=== PATIENT | male | born 1975 | race Caucasian/White ===

== ENCOUNTER 2018-09-21 08:00 | Inpatient (IN) | payer OTHER ==
[2018-09-21] MEDS ORDERED: SODIUM CHLORIDE 0.9% 500 ML INFUS.BAG IV ONE (08:26)
--- NOTE | 2018-09-21 08:27 | PDOC ---
Attending Attestation - Resident Resident Name: Rah Edwards - ED Attending Attestation I have performed the following: I have examined & evaluated the patient, The case was reviewed & discussed with the resident, I agree w/resident's findings & plan, Exceptions are as noted - HPI HPI: 09/21/18 08:26 42yo M no PMH presents with sudden onset L flank pain since yesterday Sharp in nature, radiates around the flank a/w nausea, multiple epiosdes of NBNB emesis No f/c, sob, cp, diarrhea/constipation No hx flank pain No prev abd surgeries Denies dysuria, frequency, urgency, hematuria Denies CP, SOB, weakness/numbness, dizziness - Physicial Exam PE: 09/21/18 13:43 agree with resident exam - Medical Decision Making 09/21/18 13:44 42yo presents to the ED with 1 day of sharp left flank pain, found to have 5x4 mm L prox ureter stone, obstructing with perinephric stranding and fluid 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 Carr in the ED, recommends admission Case disucussed with Dr. Sawyer, pt admitted to Dr. Tomas's service Case discussed in detail with admitting physician including history, physical exam and ancillary studies. Admitting physician has assumed care for the patient, will follow all pending diagnostics and will complete the evaluation and treatment.
[2018-09-21] MEDS ORDERED: morphine CARPU-JECT 4 MG/1 ML DISP.SYRIN IVPUSH ONE (08:28)
[2018-09-21] MEDS ORDERED: ONDANSETRON 4 MG/2 ML VIAL IVPUSH ONE (08:29)
--- NOTE | 2018-09-21 08:30 | PDOC ---
History of Present Illness - General Chief Complaint: Pain, Acute Stated Complaint: PAIN Time Seen by Provider: 09/21/18 08:09 History Source: Patient Exam Limitations: No Limitations - History of Present Illness Initial Comments: 09/21/18 08:35 Mr. De La Cruz is a 42 y/o man with no PMH presenting with one day of 10/10 sharp L sided flank pain and nausea/vomiting. He reports that the pain began all at once yesterday, and reports that it spreads slightly towards his belly while being localized mostly to the L flank. He reports vomiting repeatedly yesterday and is unsure of how many times, but reports that he "doesn't think [he] has anything left to throw up". He denies any blood or bile in the vomit, any urinary pain or discomfort, any chest pain, shortness of breath, dizziness, confusion. He reports difficulty finding a position of comfort. He denies any history of kidney stone, or similar episodes of pain in the past. Past History - Past Medical History Allergies/Adverse Reactions: Allergies Allergy/AdvReac Type Severity Reaction Status Date / Time No Known Allergies Allergy Verified 09/21/18 08:05 COPD: No - Surgical History Appendectomy: Yes - Immunization History Immunization Up to Date: Yes - Suicide/Smoking/Psychosocial Hx Smoking Status: Yes Smoking History: Never smoked Have you smoked in the past 12 months: No Number of Cigarettes Smoked Daily: 5 Information on smoking cessation initiated: No 'Breaking Loose' booklet given: 06/30/11 Hx Alcohol Use: No Drug/Substance Use Hx: No Substance Use Type: Marijuana Review of Systems - Review of Systems Comments:: 09/21/18 08:42 ROS: GENERAL/CONSTITUTIONAL: No fever or chills. No weakness. HEAD, EYES, EARS, NOSE AND THROAT: No change in vision. No ear pain or discharge. No sore throat. CARDIOVASCULAR: No chest pain or shortness of breath RESPIRATORY: No cough, wheezing, or hemoptysis. GASTROINTESTINAL: Nausea, vomiting. No diarrhea or constipation. GENITOURINARY: No dysuria, frequency, or change in urination. MUSCULOSKELETAL: L sided back pain. No joint or muscle swelling or pain. No neck pain. SKIN: No rash NEUROLOGIC: No headache, vertigo, loss of consciousness, or change in strength/ sensation. ENDOCRINE: No increased thirst. No abnormal weight change HEMATOLOGIC/LYMPHATIC: No anemia, easy bleeding, or history of blood clots. ALLERGIC/IMMUNOLOGIC: No hives or skin allergy. *Physical Exam - Vital Signs Last Vital Signs Temp Pulse Resp BP Pulse Ox 97.5 F L 73 20 139/94 100 09/21/18 08:01 09/21/18 08:01 09/21/18 08:01 09/21/18 08:01 09/21/18 08:01 - Physical Exam Comments: 09/21/18 08:43 PE: GENERAL: Awake, alert, and fully oriented. Writhing on hospital bed. HEAD: No signs of trauma, normocephalic, atraumatic EYES: PERRLA, EOMI, sclera anicteric, conjunctiva clear ENT: Auricles normal inspection, hearing grossly normal, nares patent, oropharynx clear without exudates. Moist mucosa NECK: Normal ROM, supple, no lymphadenopathy, JVD, or masses LUNGS: No distress, speaks full sentences, clear to auscultation bilaterally HEART: Regular rate and rhythm, normal S1 and S2, no murmurs, rubs or gallops, peripheral pulses normal and equal bilaterally. ABDOMEN: L CVA tenderness. Soft, diffuse mild tenderness, normoactive bowel sounds. No guarding, no rebound. No masses EXTREMITIES : Normal inspection, Normal range of motion, no edema. No clubbing or cyanosis. NEUROLOGICAL: Cranial nerves II through XII grossly intact. Normal speech, no focal sensorimotor deficits SKIN: Warm, Dry, normal turgor, no rashes or lesions noted ED Treatment Course - LABORATORY CBC & Chemistry Diagram: 09/21/18 08:30 09/21/18 08:30 Medical Decision Making - Medical Decision Making 09/21/18 08:44 42 y/o man with one day of sudden onset severe L flank pain with N/V, consistent with nephrolithiasis. Other possibilities include infection secondary to stone, less likely given lack of fever or chills. SBO possible given sudden onset, pain, N/V but less likely given lack of risk factors. Plan: CBC CMP UA Urine culture Lipase 4mg Morphine for pain 1L NS bolus Bedside ultrasound CT abdomen pelvis pending labs --- CT notable for 5x4.5 stone in proximal L ureter, L hydronephrosis, L perinephric stranding concerning for calyx rupture. Cr - 1.5 (prior 0.8 in 2011) 30 toradol IV ordered --- On reevaluation, patient reports lessened pain, sitting in bed more comfortably. 09/21/18 10:[address] Heath (urology). Plan for urology evaluation in ED ( ETA approx 1 hr). If unable to control pain in ED, patient may be admitted for pain control/fluids. Urology to evaluate. 10: 09/21/18 12:[address] Heath re: follow-up on patient evaluation in ED. *DC/Admit/Observation/Transfer Diagnosis at time of Disposition: Left nephrolithiasis - Discharge Dispostion Condition at time of disposition: Stable Decision to Admit order: Yes - Referrals Referrals: Tay Cooper MD [Primary Care Provider] - - Patient Instructions - Post Discharge Activity
[2018-09-21] MEDS ORDERED: morphine SULFATE 4 MG/ML VIAL ONE (08:32)
[2018-09-21] MEDS ORDERED: ONDANSETRON 4 MG/2 ML VIAL ONE (08:32)
[2018-09-21 08:52] LABS: BASO % 0.5 % (0-2.0); EOS % 0.1 % (0-4.5); HEMATOCRIT 41.7 % (35.4-49); HEMOGLOBIN 14.8 GM/dL (11.7-16.9); LYMPH % 12.8 % (8-40); MCH 31.9 pg (25.7-33.7); MCHC 35.4 g/dl (32.0-35.9); MEAN PLT VOLUME 7.8 fl (7.5-11.1); MONO % 7.7 % (3.8-10.2); NEUT % 78.9 % (42.8-82.8); PLATELET COUNT 306 K/MM3 (134-434); RBC 4.63 M/mm3 (4.00-5.60); RDW 13.1 % (11.9-15.9); WHITE BLOOD COUNT 8.9 K/mm3 (4.0-10.0)
[2018-09-21 09:25] LABS: ALBUMIN 4.3 g/dl (3.4-5.0); BILIRUBIN,TOTAL 0.7 mg/dL (0.2-1); BLOOD UREA NITROGEN 20.8 mg/dL (7-18); CALCIUM 9.2 mg/dL (8.5-10.1); CREATININE 1.5 mg/dL (0.55-1.3); POTASSIUM 4.1 mmol/L (3.5-5.1)
[2018-09-21] MEDS ORDERED: KETOROLAC TROMETHAMINE 30 MG/1 ML VIAL ONE (10:23)
[2018-09-21] MEDS ORDERED: KETOROLAC TROMETHAMINE 30 MG/1 ML VIAL IVPUSH ONE (10:23)
[2018-09-21 12:04] LABS: URINE APPEARANCE CLEAR; URINE BILIRUBIN NEGATIVE (NEGATIVE); URINE COLOR YELLOW; URINE GLUCOSE (UA) NEGATIVE (NEGATIVE); URINE KETONE TRACE (NEGATIVE); URINE LEUK ESTERASE NEGATIVE (NEGATIVE); URINE NITRITE NEGATIVE (NEGATIVE); URINE PROTEIN NEGATIVE (NEGATIVE); URINE UROBILINOGEN 0.2 mg/dL (0.2-1.0)
--- NOTE | 2018-09-21 13:01 | CON.GU ---
Consult Consult Specialty:: Urology Referred by:: Dr Edwards Reason for Consultation:: Left renal colic - History of Present Illness Chief Complaint: Left flank pain History of Present Illness: 42 yo male otherwise healthy w no prior hx now w 2 days nausea vomiting severe left flank pain - Alcohol/Substance Use Hx Alcohol Use: No - Smoking History Smoking history: Never smoked Have you smoked in the past 12 months: No Aproximately how many cigarettes per day: 5 Home Medications - Allergies Allergies/Adverse Reactions: Allergies Allergy/AdvReac Type Severity Reaction Status Date / Time No Known Allergies Allergy Verified 09/21/18 08:05 Physical Exam- Vital Signs: Vital Signs Temperature 97.5 F L 09/21/18 08:01 Pulse Rate 73 09/21/18 08:01 Respiratory Rate 20 09/21/18 08:01 Blood Pressure 139/94 09/21/18 08:01 O2 Sat by Pulse Oximetry (%) 100 09/21/18 08:01 Labs: CBC, BMP 09/21/18 08:30 09/21/18 08:30 Imaging - Results Cat Scan: Image Reviewed Problem List - Problems (1) Renal colic on left side Assessment/Plan: 42 yo malle w left renal colic from 5 mm prox ureteral stone N/V no SIRS signs IVF strain urine analgesics prn Discussed lithotripsy if stone does not pass Code(s): N23 - UNSPECIFIED RENAL COLIC
[2018-09-21 15:04] VITALS: BMI 30.7
[2018-09-21] MEDS ORDERED: SODIUM CHLORIDE 1,000 ML IV SCH (15:30)
[2018-09-21] MEDS: MORPHINE SULFATE 2 MG/ML VIAL IVPUSH PRN ×2 (16:07→20:08)
--- NOTE | 2018-09-21 16:35 | PN ---
Teaching Attending Note Name of Resident: Robyn Lewis ATTENDING PHYSICIAN STATEMENT I saw and evaluated the patient. I reviewed the resident's note and discussed the case with the resident. I agree with the resident's findings and plan as documented. SUBJECTIVE: Left flank pain/tenderness with associated nausea/vomiting. No fever /chills. No dysuria. OBJECTIVE: Afebrile, Hemodynamically Stable Last Vital Signs Temp Pulse Resp BP Pulse Ox 97.5 F L 73 20 139/94 100 09/21/18 08:01 09/21/18 08:01 09/21/18 08:01 09/21/18 08:01 09/21/18 13:44 HEENT - Atraumatic, Normocephalic. Heart - S1, S2, RRR Lung - clear to auscultation Abdomen - Soft, L flank/CVA tender. Bowel Sounds normal. Extremities - No edema, no calf tenderness Neuro - AAO x 3. Tone/Power normal all 4 extremities. Laboratory Results - last 24 hr 09/21/18 09/21/18 09/21/18 08:30 08:30 11:40 WBC 8.9 RBC 4.63 Hgb 14.8 Hct 41.7 MCV 90.0 MCH 31.9 MCHC 35.4 RDW 13.1 Plt Count 306 MPV 7.8 D Absolute Neuts (auto) 7.0 Neutrophils % 78.9 D Lymphocytes % 12.8 D Monocytes % 7.7 Eosinophils % 0.1 D Basophils % 0.5 Nucleated RBC % 0 Sodium 139 Potassium 4.1 Chloride 104 Carbon Dioxide 25 Anion Gap 10 BUN 20.8 H Creatinine 1.5 H Est GFR (CKD-EPI)AfAm 65.61 Est GFR (CKD-EPI)NonAf 56.61 Random Glucose 132 H Calcium 9.2 Total Bilirubin 0.7 AST 22 ALT 35 Alkaline Phosphatase 88 Total Protein 8.0 Albumin 4.3 Lipase 471 H Urine Color Yellow Urine Appearance Clear Urine pH 6.0 Ur Specific [place] 1.019 Urine Protein Negative Urine Glucose (UA) Negative Urine Ketones Trace H Urine Blood Negative Urine Nitrite Negative Urine Bilirubin Negative Urine Urobilinogen 0.2 Ur Leukocyte Esterase Negative Current Medications Generic Name Dose Route Start Last Admin Trade Name Freq PRN Reason Stop Dose Admin Acetaminophen 650 mg 09/21/18 15:18 Tylenol - PO Q6H PRN PAIN OR FEVER Heparin Sodium (Porcine) 5,000 unit 09/21/18 18:00 Heparin - SQ Q8H-IV GARRY Sodium Chloride 1,000 mls @ 150 mls/hr 09/21/18 15:59 Normal Saline - IV ASDIR GARRY Morphine Sulfate 2 mg 09/21/18 15:18 09/21/18 16:07 Morphine Sulfate IVPUSH 2 mg Q4H PRN Administration PAIN LEVEL 6-10 Ondansetron HCl 4 mg 09/21/18 15:18 Zofran Injection IVPUSH Q6H PRN NAUSEA ASSESSMENT AND PLAN: 42 year old male with no significant PMH presents with 2 day history of severe L flank pain with associated nausea/vomiting. 1. Urinary Obstruction with Uropathy secondary to Nephrolithiasis CT A/P 5 x 4.5mm obstructing stone L ureter with L hydronephrosis with perinephric stranding. Afebrile, no leukocytosis. No signs of infection. Seen by Urology - for trial of conservative management with IV hydration and Flomax. Morphine analgesia/anti-emetic. Urine Cx pending. Holding off Abx therapy for now. 2. GUNNER sec to obstructive uropathy - Creat 1.5 - will monitor in response to IV hydration. 3. R Lung Nodule 6mm - needs CT chest as out-patient with Pulmonary referral for follow up. DVT Px- Heparin SQ
[2018-09-21] MEDS ORDERED: TAMSULOSIN HCL 0.4 MG CAP PO ONE (16:57)
--- NOTE | 2018-09-21 17:01 | HP ---
CHIEF COMPLAINT:Left flank pain PCP:Dr. Cooper HISTORY OF PRESENT ILLNESS: Patient is a 42 year old male with no significant past medical history, presented to the ED due to persistent left flank pain that started 2 days ago. Patient reported pain occurred suddenly 2 days ago, at the left flank area, 10/ 10, sharp, nonradiating. Today patient had episodes of nausea and NBNB vomiting , and due to persistent pain came to the ED. Patient denies any fever, chills, headache, dizziness, chest pain, shortness of breath, abdominal pain, diarrhea, dysuria, hematuria. Patient had no previous history of stones, nor family history. ER course was notable for: (1)CTAP: 5x4.5mm obstructing stone in the proximal left ureter with mild left renal hydronephrosis, significant perinephric stranding and a small amount of left perinephric fluid extending to the left paracolic gutter and anterior to the left psoas muscle. Punctate nonobstructing right renal lower pole stone. (2) (3) Recent Travel:denies PAST MEDICAL HISTORY: none PAST SURGICAL HISTORY: none Social History: Smoking:denies Alcohol:denies Drugs: denies Family History:none Allergies No Known Allergies Allergy (Verified 09/21/18 08:05) HOME MEDICATIONS: REVIEW OF SYSTEMS CONSTITUTIONAL: Absent: fever, chills, diaphoresis, generalized weakness, malaise, loss of appetite, weight change HEENT: Absent: rhinorrhea, nasal congestion, throat pain, throat swelling, difficulty swallowing, mouth swelling, ear pain, eye pain, visual changes CARDIOVASCULAR: Absent: chest pain, syncope, palpitations, irregular heart rate, lightheadedness , peripheral edema RESPIRATORY: Absent: cough, shortness of breath, dyspnea with exertion, orthopnea, wheezing, stridor, hemoptysis GASTROINTESTINAL: Absent: abdominal pain, abdominal distension, nausea, vomiting, diarrhea, constipation, melena, hematochezia GENITOURINARY: Left flank pain Absent: dysuria, frequency, urgency, hesitancy, hematuria, genital pain MUSCULOSKELETAL: Absent: myalgia, arthralgia, joint swelling, back pain, neck pain SKIN: Absent: rash, itching, pallor HEMATOLOGIC/IMMUNOLOGIC: Absent: easy bleeding, easy bruising, lymphadenopathy, frequent infections ENDOCRINE: Absent: unexplained weight gain, unexplained weight loss, heat intolerance, cold intolerance NEUROLOGIC: Absent: headache, focal weakness or paresthesias, dizziness, unsteady gait, seizure, mental status changes, bladder or bowel incontinence PSYCHIATRIC: Absent: anxiety, depression, suicidal or homicidal ideation, hallucinations. PHYSICAL EXAMINATION Vital Signs - 24 hr 09/21/18 09/21/18 08:01 13:44 Temperature 97.5 F L Pulse Rate 73 Respiratory 20 Rate Blood Pressure 139/94 O2 Sat by Pulse 100 100 Oximetry (%) GENERAL: Awake, alert, and fully oriented, in no acute distress. HEAD: Normal with no signs of trauma. EYES:PERRLA, EOMI, sclera anicteric, conjunctiva clear. EARS, NOSE, THROAT: Moist mucous membranes. NECK: Normal range of motion, supple. LUNGS: Breath sounds equal, clear to auscultation bilaterally. HEART: Regular rate and rhythm, normal S1 and S2 without murmur, rub or gallop. ABDOMEN: Soft, nontender, not distended, normoactive bowel sounds. MUSCULOSKELETAL: Normal range of motion at all joints. +Left CVA tenderness. UPPER EXTREMITIES: 2+ pulses, warm, well-perfused. LOWER EXTREMITIES: 2+ pulses, warm, well-perfused. No peripheral edema. NEUROLOGICAL: Cranial nerves II-XII intact. Normal speech. Normal gait. PSYCHIATRIC: Cooperative. Good eye contact. Appropriate mood and affect. SKIN: Warm, dry, normal turgor, no rashes or lesions. Laboratory Results - last 24 hr 09/21/18 09/21/18 09/21/18 08:30 08:30 11:40 WBC 8.9 RBC 4.63 Hgb 14.8 Hct 41.7 MCV 90.0 MCH 31.9 MCHC 35.4 RDW 13.1 Plt Count 306 MPV 7.8 D Absolute Neuts (auto) 7.0 Neutrophils % 78.9 D Lymphocytes % 12.8 D Monocytes % 7.7 Eosinophils % 0.1 D Basophils % 0.5 Nucleated RBC % 0 Sodium 139 Potassium 4.1 Chloride 104 Carbon Dioxide 25 Anion Gap 10 BUN 20.8 H Creatinine 1.5 H Est GFR (CKD-EPI)AfAm 65.61 Est GFR (CKD-EPI)NonAf 56.61 Random Glucose 132 H Calcium 9.2 Total Bilirubin 0.7 AST 22 ALT 35 Alkaline Phosphatase 88 Total Protein 8.0 Albumin 4.3 Lipase 471 H Urine Color Yellow Urine Appearance Clear Urine pH 6.0 Ur Specific [place] 1.019 Urine Protein Negative Urine Glucose (UA) Negative Urine Ketones Trace H Urine Blood Negative Urine Nitrite Negative Urine Bilirubin Negative Urine Urobilinogen 0.2 Ur Leukocyte Esterase Negative ASSESSMENT/PLAN: Patient is a 42 year old male with no significant past medical history, presented to the ED due to persistent left flank pain that started 2 days ago. #Left flank pain 2/2 L ureteral stone -CTAP: 5x4.5mm obstructing stone in the proximal left ureter with mild left renal hydronephrosis, significant perinephric stranding and a small amount of left perinephric fluid extending to the left paracolic gutter and anterior to the left psoas muscle. -Urology (Dr. Carr) consulted. Recommendations appreciated. -IV fluids -pain control with Tylenol and Morphine -To consider lithotripsy if stone does not pass -will keep NPO after midnight. #GUNNER -likely post renal 2/2 ureterolithiasis -Cr 1.5 -IV hydration -Avoid NSAIDs -Will continue to monitor renal function #FEN -IV NS @ 150cc/hr -Electrolytes wnl, routine bmp monitoring -Sodium restricted diet, NPO after midnight #Prophylaxis -Heparin 5000unit sq tid #Disposition -full code -admit to med surg Visit type - Emergency Visit Emergency Visit: Yes ED Registration Date: 09/21/18 Care time: The patient presented to the Emergency Department on the above date and was hospitalized for further evaluation of their emergent condition. - New Patient This patient is new to me today: Yes Date on this admission: 09/22/18 - Critical Care Critical Care patient: No ATTENDING PHYSICIAN STATEMENT I saw and evaluated the patient. I reviewed the resident's note and discussed the case with the resident. I agree with the resident's findings and plan as documented. SUBJECTIVE: OBJECTIVE: ASSESSMENT AND PLAN:
[2018-09-21] MEDS: SODIUM CHLORIDE 1,000 ML IV SCH ×2 (17:22→17:37)
[2018-09-21] MEDS: ACETAMINOPHEN 325 MG TABLET (FP) PO PRN (17:35)
[2018-09-21] MEDS: HEPARIN NA (PORCINE) 5,000 UNITS/ML 1ML VIAL SQ SCH (17:37)
[2018-09-21] MEDS: ONDANSETRON 4 MG/2 ML VIAL IVPUSH PRN (20:10)
[2018-09-21] MEDS ORDERED: MORPHINE SULFATE 2 MG/ML VIAL IVPUSH ONE (22:45)
[2018-09-21] MEDS ORDERED: ACETAMINOPHEN 1000 MG/100 ML VIAL (NON FORMULARY) IVPB ONE (23:51)
[2018-09-22] MEDS: MORPHINE SULFATE 2 MG/ML VIAL IVPUSH PRN ×4 (02:27→19:09)
[2018-09-22] MEDS: HEPARIN NA (PORCINE) 5,000 UNITS/ML 1ML VIAL SQ SCH ×3 (02:27→17:43)
[2018-09-22] MEDS: ONDANSETRON 4 MG/2 ML VIAL IVPUSH PRN ×3 (02:28→11:33)
[2018-09-22] MEDS ORDERED: ACETAMINOPHEN 1000 MG/100 ML VIAL (NON FORMULARY) IVPB ONE ×2 (04:17→20:41)
[2018-09-22] MEDS: SODIUM CHLORIDE 1,000 ML IV SCH ×4 (04:32→21:40)
[2018-09-22] MEDS ORDERED: HYDROmorphone HCl 2 MG/ML VIAL IVPUSH ONE (05:01)
[2018-09-22] MEDS ORDERED: HYDROmorphone HCl 2 MG/ML VIAL IVPB ONE (06:42)
[2018-09-22 07:59] LABS: BASO % 0.5 % (0-2.0); HEMATOCRIT 37.8 % (35.4-49); HEMOGLOBIN 13.2 GM/dL (11.7-16.9); MCH 31.5 pg (25.7-33.7); MCHC 34.9 g/dl (32.0-35.9); MEAN CELL VOLUME 90.5 fl (80-96); MEAN PLT VOLUME 7.8 fl (7.5-11.1); NEUT % 81.5 % (42.8-82.8); PLATELET COUNT 270 K/MM3 (134-434); RBC 4.18 M/mm3 (4.00-5.60); RDW 12.8 % (11.9-15.9); WHITE BLOOD COUNT 9.7 K/mm3 (4.0-10.0)
[2018-09-22 08:39] LABS: BLOOD UREA NITROGEN 17.7 mg/dL (7-18); CALCIUM 8.5 mg/dL (8.5-10.1); CREATININE 1.5 mg/dL (0.55-1.3); MAGNESIUM 2.1 mg/dL (1.8-2.4); PHOSPHOROUS 3.2 mg/dL (2.5-4.9); POTASSIUM 4.5 mmol/L (3.5-5.1); TOT PROT 7.6 g/dl (6.4-8.2)
[2018-09-22] MEDS: TAMSULOSIN HCL 0.4 MG CAP PO SCH (09:43)
[2018-09-22] MEDS ORDERED: HYDROmorphone HCl 2 MG/ML VIAL IVPUSH STA (11:12)
[2018-09-22] MEDS ORDERED: diphenhydrAMINE HCL 25 MG CAPSULE (FP) PO ONE (13:30)
--- NOTE | 2018-09-22 15:27 | PN ---
Progress Note (short form) - Note Progress Note: SUBJECTIVE: Complains of excruciating left flank pain radiating to groin/L testicle. no fever/chills. Nausea ++. No vomiting. OBJECTIVE: Afebrile, Hemodynamically Stable. Writhing in pain/discomfort. Last Vital Signs Temp Pulse Resp BP Pulse Ox 98.4 F 74 74 H 155/99 99 09/22/18 09:56 09/22/18 09:56 09/22/18 09:56 09/22/18 09:56 09/21/18 21:00 HEENT - Atraumatic, Normocephalic. Heart - S1, S2, RRR Lung - clear to auscultation Abdomen - Soft, L flank/CVA tender. Bowel Sounds normal. - No testicular/scrotal erythema/swelling/tenderness. Extremities - No edema, no calf tenderness Neuro - AAO x 3. Tone/Power normal all 4 extremities. Laboratory Results - last 24 hr 09/21/18 09/21/18 09/22/18 18:00 18:00 07:24 WBC 9.7 RBC 4.18 Hgb 13.2 Hct 37.8 MCV 90.5 MCH 31.5 MCHC 34.9 RDW 12.8 Plt Count 270 MPV 7.8 Absolute Neuts (auto) 7.9 Neutrophils % 81.5 Lymphocytes % 10.0 D Monocytes % 8.0 Eosinophils % 0.0 D Basophils % 0.5 Nucleated RBC % 0 Sodium Potassium Chloride Carbon Dioxide Anion Gap BUN Creatinine Est GFR (CKD-EPI)AfAm Est GFR (CKD-EPI)NonAf Random Glucose Serum Osmolality Calcium Phosphorus Magnesium Total Bilirubin AST ALT Alkaline Phosphatase Total Protein Albumin Urine Osmolality 983 H Ur Random Creatinine 237.0 H Ur Random Sodium 114 Ur Random Urea Nitrogn 1364 H 09/22/18 07:24 WBC RBC Hgb Hct MCV MCH MCHC RDW Plt Count MPV Absolute Neuts (auto) Neutrophils % Lymphocytes % Monocytes % Eosinophils % Basophils % Nucleated RBC % Sodium 138 Potassium 4.5 Chloride 104 Carbon Dioxide 28 Anion Gap 7 L BUN 17.7 Creatinine 1.5 H Est GFR (CKD-EPI)AfAm 65.61 Est GFR (CKD-EPI)NonAf 56.61 Random Glucose 117 H Serum Osmolality 291 Calcium 8.5 Phosphorus 3.2 Magnesium 2.1 Total Bilirubin 1.0 AST 17 ALT 27 Alkaline Phosphatase 84 Total Protein 7.6 Albumin 4.0 Urine Osmolality Ur Random Creatinine Ur Random Sodium Ur Random Urea Nitrogn Current Medications Generic Name Dose Route Start Last Admin Trade Name Freq PRN Reason Stop Dose Admin Acetaminophen 650 mg 09/21/18 15:18 09/21/18 17:35 Tylenol - PO 650 mg Q6H PRN Administration PAIN OR FEVER Heparin Sodium (Porcine) 5,000 unit 09/21/18 18:00 09/22/18 10:00 Heparin - SQ Not Given Q8H-IV GARRY Sodium Chloride 1,000 mls @ 150 mls/hr 09/21/18 15:59 09/22/18 15:10 Normal Saline - IV 150 mls/hr ASDIR GARRY Administration Morphine Sulfate 2 mg 09/21/18 15:18 09/22/18 15:06 Morphine Sulfate IVPUSH 2 mg Q4H PRN Administration PAIN LEVEL 6-10 Ondansetron HCl 4 mg 09/22/18 11:05 09/22/18 11:33 Zofran Injection IVPUSH 4 mg Q4H PRN Administration NAUSEA Tamsulosin HCl 0.4 mg 09/22/18 08:30 09/22/18 09:43 Flomax - PO Not Given DAILY@0830 CRITICAL ACCESS HOSPITAL ASSESSMENT AND PLAN: 42 year old male with no significant PMH presents with 2 day history of severe L flank pain with associated nausea/vomiting. 1. Urinary Obstruction with Uropathy secondary to Nephrolithiasis CT A/P 5 x 4.5mm obstructing stone L ureter with L hydronephrosis with perinephric stranding. Afebrile, no leukocytosis. No signs of infection. Pain appears to be worsening with associated nausea/restlessness. Seen by Urology - for trial of conservative management with IV hydration and Flomax. Morphine analgesia/anti-emetic ongoing. Requiring 2 additional doses of doses of Dilaudid today. Discussed with Dr. Carr, who agrees to re-evaluate Urine Cx negative. no signs of sepsis. Holding off Abx therapy for now. 2. GUNNER sec to obstructive uropathy - Creat 1.5 - steady despite overnight hydration. Will monitor. 3. R Lung Nodule 6mm - needs CT chest as out-patient with Pulmonary referral for follow up. DVT Px- Heparin SQ Visit type - Emergency Visit Emergency Visit: Yes ED Registration Date: 09/21/18 Care time: The patient presented to the Emergency Department on the above date and was hospitalized for further evaluation of their emergent condition. - New Patient This patient is new to me today: No - Critical Care Critical Care patient: No - Discharge Referral Referred to [facility] No
[2018-09-22] MEDS: ACETAMINOPHEN 325 MG TABLET (FP) PO PRN (17:42)
[2018-09-22] MEDS ORDERED: MORPHINE SULFATE 2 MG/ML VIAL IVPUSH ONE (20:34)
[2018-09-23] MEDS: ONDANSETRON 4 MG/2 ML VIAL IVPUSH PRN (02:19)
[2018-09-23] MEDS: MORPHINE SULFATE 2 MG/ML VIAL IVPUSH PRN ×3 (02:20→16:15)
[2018-09-23] MEDS: HEPARIN NA (PORCINE) 5,000 UNITS/ML 1ML VIAL SQ SCH ×2 (02:25→09:33)
[2018-09-23] MEDS: ACETAMINOPHEN 325 MG TABLET (FP) PO PRN ×3 (05:33→22:34)
[2018-09-23] MEDS: SODIUM CHLORIDE 1,000 ML IV SCH ×3 (05:34→19:09)
[2018-09-23 08:05] LABS: BASO % 0.3 % (0-2.0); HEMATOCRIT 32.4 % (35.4-49); HEMOGLOBIN 11.4 GM/dL (11.7-16.9); LYMPH % 11.7 % (8-40); MCH 31.7 pg (25.7-33.7); MCHC 35.1 g/dl (32.0-35.9); MEAN CELL VOLUME 90.1 fl (80-96); MEAN PLT VOLUME 8.1 fl (7.5-11.1); MONO % 10.4 % (3.8-10.2); NEUT % 77.6 % (42.8-82.8); PLATELET COUNT 239 K/MM3 (134-434); RDW 12.9 % (11.9-15.9); WHITE BLOOD COUNT 7.9 K/mm3 (4.0-10.0)
[2018-09-23 08:27] LABS: BLOOD UREA NITROGEN 13.3 mg/dL (7-18); CALCIUM 7.9 mg/dL (8.5-10.1); CREATININE 1.2 mg/dL (0.55-1.3); POTASSIUM 3.9 mmol/L (3.5-5.1)
[2018-09-23] MEDS: TAMSULOSIN HCL 0.4 MG CAP PO SCH (09:33)
[2018-09-23] MEDS ORDERED: DOCUSATE SODIUM 100 MG CAPSULE (FP) PO PRN (09:48)
[2018-09-23] MEDS ORDERED: SIMETHICONE 80 MG TAB.CHEW (FP) PO PRN (11:13)
[2018-09-23] MEDS: SENNOSIDES 8.6MG TABLET (FP) PO SCH ×2 (11:42→22:35)
--- NOTE | 2018-09-23 14:25 | PN ---
Teaching Attending Note Name of Resident: Timoteo Acevedo ATTENDING PHYSICIAN STATEMENT I saw and evaluated the patient. I reviewed the resident's note and discussed the case with the resident. I agree with the resident's findings and plan as documented. SUBJECTIVE: ongoing left flank pain radiating to groin/L testicle, some improvement since yesterday. No fever/chills. Nausea resolved. No vomiting.No dysuria/hematuria. No stone/fragments passed yet. OBJECTIVE: Afebrile, Hemodynamically Stable. Last Vital Signs Temp Pulse Resp BP Pulse Ox 99.4 F 76 18 154/99 99 09/23/18 05:47 09/23/18 10:00 09/23/18 10:00 09/23/18 10:00 09/22/18 21:00 Heart - S1, S2, RRR Lung - clear to auscultation Abdomen - Soft, L flank/CVA tender. Bowel Sounds normal. - No testicular/scrotal erythema/swelling/tenderness. Extremities - No edema, no calf tenderness Neuro - AAO x 3. Tone/Power normal all 4 extremities. Laboratory Results - last 24 hr 09/23/18 09/23/18 07:10 07:10 WBC 7.9 RBC 3.60 L Hgb 11.4 L Hct 32.4 L MCV 90.1 MCH 31.7 MCHC 35.1 RDW 12.9 Plt Count 239 MPV 8.1 Absolute Neuts (auto) 6.1 Neutrophils % 77.6 Lymphocytes % 11.7 Monocytes % 10.4 H Eosinophils % 0.0 Basophils % 0.3 Nucleated RBC % 0 Sodium 138 Potassium 3.9 Chloride 104 Carbon Dioxide 27 Anion Gap 7 L BUN 13.3 Creatinine 1.2 Est GFR (CKD-EPI)AfAm 85.92 Est GFR (CKD-EPI)NonAf 74.14 Random Glucose 101 Calcium 7.9 L Current Medications Generic Name Dose Route Start Last Admin Trade Name Freq PRN Reason Stop Dose Admin Acetaminophen 650 mg 09/21/18 15:18 09/23/18 05:33 Tylenol - PO 650 mg Q6H PRN Administration PAIN OR FEVER Docusate Sodium 100 mg 09/23/18 09:48 Colace - PO BID PRN CONSTIPATION Heparin Sodium (Porcine) 5,000 unit 09/21/18 18:00 09/23/18 09:33 Heparin - SQ 5,000 unit Q8H-IV GARRY Administration Sodium Chloride 1,000 mls @ 150 mls/hr 09/21/18 15:59 09/23/18 12:28 Normal Saline - IV 150 mls/hr ASDIR GARRY Administration Morphine Sulfate 2 mg 09/21/18 15:18 09/23/18 09:41 Morphine Sulfate IVPUSH 2 mg Q4H PRN Administration PAIN LEVEL 6-10 Ondansetron HCl 4 mg 09/22/18 11:05 09/23/18 02:19 Zofran Injection IVPUSH 4 mg Q4H PRN Administration NAUSEA Senna 1 tab 09/23/18 10:00 09/23/18 11:42 Senna - PO 1 tab BID GARRY Administration Simethicone 80 mg 09/23/18 11:13 09/23/18 11:43 Mylicon - PO 80 mg Q4H PRN Administration GAS Tamsulosin HCl 0.4 mg 09/22/18 08:30 09/23/18 09:33 Flomax - PO 0.4 mg DAILY@0830 GARRY Administration ASSESSMENT AND PLAN: 42 year old male with no significant PMH presents with 2 day history of severe L flank pain with associated nausea/vomiting. 1. Urinary Obstruction with Uropathy secondary to Nephrolithiasis CT A/P 5 x 4.5mm obstructing stone L ureter with L hydronephrosis with perinephric stranding. Afebrile, no leukocytosis. No signs of infection. Pain persistent - nausea/restlessness resolved. Seen by Urology - for ongoing trial of conservative management with IV hydration and Flomax. If he has not passed stone by 09/24, the lithotripsy planned by Urology. Morphine analgesia/anti-emetic ongoing. Urine Cx negative. no signs of sepsis. T 99.4. Holding off Abx therapy for now. 2. GUNNER sec to obstructive uropathy - improving. Continue hydration. Will monitor. 3. R Lung Nodule 6mm - needs CT Chest as out-patient with Pulmonary referral for out-patient follow up. DVT Px- Heparin SQ
--- NOTE | 2018-09-23 14:32 | PN ---
Physical Exam: SUBJECTIVE: 42 y/o M whom reported no PMH and presented w c/o LEFT flank pain and admitted for nephrolithiasis, seen at bedside today. Imaging demonstrates 5 x 4.5mm obstructing stone in LEFT ureter. Pt reports on-going flank pain and c/ o constipation. He says he is monitoring his urine w strainer and has NOT passed stone or fragments. He denies dysuria and hematuria. Pt has not passed stool in 4 days and feels very gassy. He endorses nausea but no vomiting. Denies fever and chills. OBJECTIVE: Vital Signs Temp Pulse Resp BP Pulse Ox 99.4 F 76 18 154/99 99 09/23/18 05:47 09/23/18 10:00 09/23/18 10:00 09/23/18 10:00 09/22/18 21:00 GENERAL: The patient is awake, alert, and fully oriented, in no moderate distress/in pain. HEAD: Normal with no signs of trauma. EYES: ROQUE, EOMI, sclera anicteric, conjunctiva clear. No ptosis. ENT: Ears normal, nares patent, oropharynx clear without exudates, moist mucous membranes. NECK: Trachea midline, full range of motion, supple. LUNGS: Breath sounds equal, clear to auscultation bilaterally, no wheezes, no crackles, no accessory muscle use. HEART: Regular rate and rhythm, S1, S2 without murmur, rub or gallop. ABDOMEN: Soft, tender on LEFT uppler+lower quadrant, nondistended, normoactive bowel sounds, guarding, no rebound, no hepatosplenomegaly, no masses. EXTREMITIES: 2+ pulses, warm, well-perfused, no edema. NEUROLOGICAL: Cranial nerves III through XII grossly intact. Normal speech, gait not observed. PSYCH: Normal mood, normal affect. SKIN: Warm, dry, normal turgor, no rashes or lesions noted Laboratory Results - last 24 hr 09/23/18 09/23/18 07:10 07:10 WBC 7.9 RBC 3.60 L Hgb 11.4 L Hct 32.4 L MCV 90.1 MCH 31.7 MCHC 35.1 RDW 12.9 Plt Count 239 MPV 8.1 Absolute Neuts (auto) 6.1 Neutrophils % 77.6 Lymphocytes % 11.7 Monocytes % 10.4 H Eosinophils % 0.0 Basophils % 0.3 Nucleated RBC % 0 Sodium 138 Potassium 3.9 Chloride 104 Carbon Dioxide 27 Anion Gap 7 L BUN 13.3 Creatinine 1.2 Est GFR (CKD-EPI)AfAm 85.92 Est GFR (CKD-EPI)NonAf 74.14 Random Glucose 101 Calcium 7.9 L Active Medications Acetaminophen (Tylenol -) 650 mg PO Q6H PRN PRN Reason: PAIN OR FEVER Last Admin: 09/23/18 05:33 Dose: 650 mg Docusate Sodium (Colace -) 100 mg PO BID PRN PRN Reason: CONSTIPATION Heparin Sodium (Porcine) (Heparin -) 5,000 unit SQ Q8H-IV [facility] Last Admin: 09/23/18 09:33 Dose: 5,000 unit Sodium Chloride (Normal Saline -) 1,000 mls @ 150 mls/hr IV ASDIR [facility] Last Admin: 09/23/18 12:28 Dose: 150 mls/hr Morphine Sulfate (Morphine Sulfate) 2 mg IVPUSH Q4H PRN PRN Reason: PAIN LEVEL 6-10 Last Admin: 09/23/18 09:41 Dose: 2 mg Ondansetron HCl (Zofran Injection) 4 mg IVPUSH Q4H PRN PRN Reason: NAUSEA Last Admin: 09/23/18 02:19 Dose: 4 mg Senna (Senna -) 1 tab PO BID [facility] Last Admin: 09/23/18 11:42 Dose: 1 tab Simethicone (Mylicon -) 80 mg PO Q4H PRN PRN Reason: GAS Last Admin: 09/23/18 11:43 Dose: 80 mg Tamsulosin HCl (Flomax -) 0.4 mg PO DAILY@0830 [facility] Last Admin: 09/23/18 09:33 Dose: 0.4 mg ASSESSMENT/PLAN: 42 y/o M whom reported no PMH and presented w c/o LEFT flank pain and admitted for nephrolithiasis # Nephrolithiasis - Urology on board - Dr. Carr/Dr. Tovar - Pt declines in hospital stent - Plan is to maintain pt on IV morphine and IV Tylenol and d/c pt at 6am directly to urologist's recommended out pt center for 7am appointment: [facility], [place] [address], [place] - CT A/P 5 x 4.5mm obstructing stone LEFT ureter with LEFT hydronephrosis w perinephric stranding - Afebrile, no leukocytosis. No signs of infection. - Pain persistent - nausea/restlessness resolved. - Cont. morphine analgesia and anti-emetics - Urine Cx negative. No signs of sepsis. - T 99.4. No abx now. IF fever, provide zosyn # GUNNER 2/2 obstructive uropathy - Improving - Cont. hydration # R Lung Nodule - 6mm found on CT chest - F/u out-pt - Refer to pulmonology # F/E/N - NS - Continue to monitor electrolytes - Regular diet # DVT prophylaxis - Heparin # Disposition - Full code - 6am d/c directly to [facility], [place] [address] [place] [address] Timoteo Acevedo MD Visit type - Emergency Visit Emergency Visit: No - New Patient This patient is new to me today: No - Critical Care Critical Care patient: No - Discharge Referral Referred to [facility] Med P.C[facility] No ATTENDING PHYSICIAN STATEMENT I saw and evaluated the patient. I reviewed the resident's note and discussed the case with the resident. I agree with the resident's findings and plan as documented. SUBJECTIVE: OBJECTIVE: ASSESSMENT AND PLAN:
--- NOTE | 2018-09-23 16:08 | PN ---
Progress Note (short form) - Note Progress Note: still with flank pain afebrile treatment options revuiewed pt elects ESWL will have to be discharged tomorrow am to have lithotripsy done elsewhere ([facility]) as no machine available here
[2018-09-24] MEDS: SODIUM CHLORIDE 1,000 ML IV SCH (02:01)
[2018-09-24 07:46] VITALS: BP 148/99; PULSE 70; TEMP 98.9
--- NOTE | 2018-09-24 13:15 | DS ---
Physical Exam: SUBJECTIVE: 42 y/o M whom reported no PMH and presented w c/o LEFT flank pain and admitted for nephrolithiasis, seen at bedside today JOSE ALBERTO 3. Imaging demonstrated 5 x 4.5mm obstructing stone in LEFT ureter. Pt reports on-going flank pain. He says he is monitoring his urine w strainer and has NOT passed stone or fragments. He denies dysuria and hematuria. Pt passing stool well today and no longer c/o constipation. He endorses nausea but NO vomiting. Denies fever and chills. Pt will be DC directly to lithotrypsy today Sep 24, 2018. OBJECTIVE: Vital Signs Temp Pulse Resp BP Pulse Ox 98.9 F 70 18 148/99 99 09/24/18 06:00 09/24/18 06:00 09/24/18 06:00 09/24/18 06:00 09/23/18 21:00 PHYSICAL EXAM GENERAL: The patient is awake, alert, and fully oriented, in no moderate distress/in pain. HEAD: Normal with no signs of trauma. EYES: ROQUE, EOMI, sclera anicteric, conjunctiva clear. No ptosis. ENT: Ears normal, nares patent, oropharynx clear without exudates, moist mucous membranes. NECK: Trachea midline, full range of motion, supple. LUNGS: Breath sounds equal, clear to auscultation bilaterally, no wheezes, no crackles, no accessory muscle use. HEART: Regular rate and rhythm, S1, S2 without murmur, rub or gallop. ABDOMEN: Soft, tender on LEFT uppler+lower quadrant/suprapubic, nondistended, normoactive bowel sounds, guarding, no rebound, no hepatosplenomegaly, no masses. EXTREMITIES: 2+ pulses, warm, well-perfused, no edema. NEUROLOGICAL: Cranial nerves III through XII grossly intact. Normal speech, gait not observed. PSYCH: Normal mood, normal affect. SKIN: Warm, dry, normal turgor, no rashes or lesions noted LABS CBC,CMP WBC 7.9 K/mm3 (4.0-10.0) 09/23/18 07:10 RBC 3.60 M/mm3 (4.00-5.60) L 09/23/18 07:10 Hgb 11.4 GM/dL (11.7-16.9) L 09/23/18 07:10 Hct 32.4 % (35.4-49) L 09/23/18 07:10 MCV 90.1 fl (80-96) 09/23/18 07:10 MCH 31.7 pg (25.7-33.7) 09/23/18 07:10 MCHC 35.1 g/dl (32.0-35.9) 09/23/18 07:10 RDW 12.9 % (11.9-15.9) 09/23/18 07:10 Plt Count 239 K/MM3 (134-434) 09/23/18 07:10 MPV 8.1 fl (7.5-11.1) 09/23/18 07:10 Absolute Neuts (auto) 6.1 K/mm3 (1.5-8.0) 09/23/18 07:10 Neutrophils % 77.6 % (42.8-82.8) 09/23/18 07:10 Lymphocytes % 11.7 % (8-40) 09/23/18 07:10 Monocytes % 10.4 % (3.8-10.2) H 09/23/18 07:10 Eosinophils % 0.0 % (0-4.5) 09/23/18 07:10 Basophils % 0.3 % (0-2.0) 09/23/18 07:10 Nucleated RBC % 0 % (0-0) 09/23/18 07:10 Sodium 138 mmol/L (136-145) 09/23/18 07:10 Potassium 3.9 mmol/L (3.5-5.1) 09/23/18 07:10 Chloride 104 mmol/L (98-107) 09/23/18 07:10 Carbon Dioxide 27 mmol/L (21-32) 09/23/18 07:10 Anion Gap 7 MMOL/L (8-16) L 09/23/18 07:10 BUN 13.3 mg/dL (7-18) 09/23/18 07:10 Creatinine 1.2 mg/dL (0.55-1.3) 09/23/18 07:10 Est GFR (CKD-EPI)AfAm 85.92 09/23/18 07:10 Est GFR (CKD-EPI)NonAf 74.14 09/23/18 07:10 Random Glucose 101 mg/dL (74-106) 09/23/18 07:10 Serum Osmolality 291 mosm/kg (278-305) 09/22/18 07:24 Calcium 7.9 mg/dL (8.5-10.1) L 09/23/18 07:10 Phosphorus 3.2 mg/dL (2.5-4.9) 09/22/18 07:24 Magnesium 2.1 mg/dL (1.8-2.4) 09/22/18 07:24 Total Bilirubin 1.0 mg/dL (0.2-1) 09/22/18 07:24 AST 17 U/L (15-37) 09/22/18 07:24 ALT 27 U/L (13-61) 09/22/18 07:24 Alkaline Phosphatase 84 U/L (45-117) 09/22/18 07:24 Total Protein 7.6 g/dl (6.4-8.2) 09/22/18 07:24 Albumin 4.0 g/dl (3.4-5.0) 09/22/18 07:24 Lipase 471 U/L (73-393) H 09/21/18 08:30 HOSPITAL COURSE: Date of Admission:09/21/18 42 y/o M whom reported no PMH and presented w c/o LEFT flank pain and admitted for nephrolithiasis. CT A/P 5 x 4.5mm obstructing stone LEFT ureter with LEFT hydronephrosis w perinephric stranding. He demonstrated no leukocytosis and was afebrile throughout stay (t-max 99.4). POS for nausea and NBNB vominting. Urine Cx negative. No signs of sepsis. No signs of infection. Provided morphine and IV tylenol with greater relief from tylenol. Pt declined in hospital stent placement. Conservative management was continued. GUNNER 2/2 obstructive uropathy identified and improved w hydration. 6 mm RIGHT lung nodule incidentally found on CT; pt advised to f/u out-pt w pulm ref. Seen by urology on board (Dr. Carr/Dr. Tovar) whom recommended out-pt lithotrypsy if no stone passed by day 2. Pt was maintained on IV morphine and IV Tylenol and d/c directly to urologist's recommended out pt center for 7am appointment: [facility] [address], [place] . IMAGING [address] Ab/Pelv There is a partially included pulmonary nodule in the right lung base, posteriorly measuring 6 mm with a slightly irregular margin. There are also mild atelectatic changes in the dependent portion of the right lower lobe. Minimal centrilobular emphysema is present. The heart is within normal limits in size. A small hiatus hernia is present. The stomach is partially distended without gross wall thickening. Evaluation of the liver and spleen appear unremarkable. The gallbladder is adequately distended with hyperdense material suggestive of vicarious excretion of contrast if the patient received recent intravenous contrast injection. Differential diagnosis also includes milk of calcium without gross wall thickening or pericholecystic free fluid. The pancreas and both adrenal glands appear unremarkable. Right kidney is within normal limits in size with a punctate nonobstructing stone in its lower pole measuring 2 mm. Left kidney is within normal limits in size with stranding of the perinephric fat and a small amount of perinephric fluid. There is mild left renal hydronephrosis. An obstructing stone is present in the proximal left ureter measuring 5 x 4.5. The rest of the left ureter appears unremarkable. Moderately distended urinary bladder without wall thickening or intraluminal stones. There is no evidence of small bowel obstruction. Normal-appearing terminal ileum. Status post appendectomy with multiple surgical sutures present. Normal stool burden in the colon without wall thickening. Perirectal and pericecal fat are clear. Visualized osseous structures appear intact with mild doses in the lower thoracic spine IMPRESSION: 5 x 4.5 mm obstructing stone in the proximal left ureter with mild left renal hydronephrosis, significant left perinephric stranding and a small amount of left perinephric fluid extending to the left paracolic gutter and anterior to the left psoas muscle. Punctate nonobstructing right renal lower pole stone. Partially included nodule in the right lung base measuring 6 mm with a slightly irregular margin for which a nonemergent CT scan of the chest is needed to rule out the presence of other nodules. Date of Discharge: 09/24/18 Timoteo Acevedo MD Minutes to complete discharge: 40 Discharge Summary Reason For Visit: CALCULUS OF LEFT KIDNEY Condition: Improved - Instructions Diet, Activity, Other Instructions: YOUR VISIT You were brought to the hospital because you felt back pain and nausea. Imaging showed that you had a LEFT side kidney stone. You were admitted to the hospital for treatment of this kidney stone. While at the hospital, you were given fluids and pain medication. You were also seen by a urologist. You opted and elective procedure, a shock-wave therapy to help break down the kidney stone. For this, you are being discharged DIRECTLY to [facility] [address] [address] [place] . MEDICATIONS You had no home medications upon arrival to the hospital. Please follow the recommendations of the urology visit today for pain medication. ADDITIONAL CARE Please make an appoint with your primary care provider, Dr. Cooper, 1 week from today. Please make an appointment with Dr. Carr to continue urological care. For this visit, please come with a copy of your EKG. During this stay a 6mm nodule was noted on your RIGHT lung. Please make an appointment with Dr. Gupta to follow up on this. For this visit, please come with a copy of all of your xray/CAT scans. ADDITIONAL INFORMATION Please call 911 or come to the emergency department if you feel short of breath , chest pain, abdominal pain, fever, unusual bleeding, dizziness, head ache, change in awareness or any other alarming symptoms. Referrals: Jose Eduardo Carr MD., [Staff Physician] - Everardo Gupta MD [Staff Physician] - Disposition: HOME - Home Medications Comprehensive Discharge Medication List: Ambulatory Orders Docusate Sodium [Colace -] 100 mg PO BID PRN capsule 09/23/18 Ibuprofen 600 mg PO Q8H 09/23/18 Sennosides [Senna -] 1 tab PO BID tablet 09/23/18 Simethicone [Mylicon -] 80 mg PO Q4H PRN tab.chew 09/23/18 Tamsulosin HCl [Flomax -] 0.4 mg PO DAILY@0830 #15 cap.er.24h 09/24/18 This patient is new to me today: No Emergency Visit: No Critical Care patient: No - Discharge [facility] No ATTENDING PHYSICIAN STATEMENT I saw and evaluated the patient. I reviewed the resident's note and discussed the case with the resident. I agree with the resident's findings and plan as documented. SUBJECTIVE: OBJECTIVE: ASSESSMENT AND PLAN:
--- NOTE | 2018-09-24 16:12 | EKG ---
Test Reason : Blood Pressure : / mmHG Vent. Rate : 075 BPM Atrial Rate : 075 BPM P-R Int : 154 ms QRS Dur : 084 ms QT Int : 370 ms P-R-T Axes : 072 049 -23 degrees QTc Int : 413 ms NORMAL SINUS RHYTHM T WAVE ABNORMALITY, CONSIDER INFERIOR ISCHEMIA ABNORMAL ECG WHEN COMPARED WITH ECG OF 30-JUN-2011 04:19, NO SIGNIFICANT CHANGE WAS FOUND Confirmed by MD CECILLE, SERENITY ([id number]) on 09/24/2018 4:12:14 PM Referred By: Confirmed By:SERENITY ODEN MD
== END 2018-09-24 08:07 | disposition home or self-care (01) | DRG 694 ==
LOC: JER 08:00 → JERBED 13:44 → J5S 14:40
PROVIDERS: ATTEND Internal Medicine
DX: N13.2 Hydronephrosis with renal and ureteral calculous obstruction (principal); N17.9 Acute kidney failure, unspecified; R91.1 Solitary pulmonary nodule
CPT/HCPCS: 36415; 74176-TC; 80048; 80053; 81003; 82565; 83690; 83735; 83930; 83935; 84100; 84300; 84540; 85025; 87086; 93005; 93010; 99284-25; J0131; J1644; J7030

== ENCOUNTER 2019-01-06 17:26 | Emergency (ER) | payer OTHER ==
[2019-01-06 17:30] VITALS: TEMP 98; BMI 31.3
[2019-01-06] MEDS ORDERED: HYDROmorphone HCL CARPU-JECT 2 MG/1 ML DISP.SYRIN IVPUSH ONE (17:52)
[2019-01-06] MEDS ORDERED: ONDANSETRON 4 MG/2 ML VIAL IVPUSH ONE (17:52)
[2019-01-06] MEDS ORDERED: SODIUM CHLORIDE 1,000 ML IV STA (17:52)
[2019-01-06] MEDS ORDERED: ONDANSETRON *ODT* 4 MG TABLET ONE (17:55)
[2019-01-06] MEDS ORDERED: HYDROmorphone HCL CARPU-JECT 2 MG/1 ML DISP.SYRIN IM ONE (17:56)
--- NOTE | 2019-01-06 17:56 | PDOC ---
History of Present Illness - General Chief Complaint: Pain Stated Complaint: ABD PAIN Time Seen by Provider: 01/06/19 17:40 History Source: Patient Exam Limitations: No Limitations Past History - Travel Traveled outside of the country in the last 30 days: No Close contact w/someone who was outside of country & ill: No - Past Medical History Allergies/Adverse Reactions: Allergies Allergy/AdvReac Type Severity Reaction Status Date / Time No Known Allergies Allergy Verified 01/06/19 17:30 Home Medications: Ambulatory Orders Docusate Sodium [Colace -] 100 mg PO BID PRN capsule 09/23/18 Ibuprofen 600 mg PO Q8H 09/23/18 Sennosides [Senna -] 1 tab PO BID tablet 09/23/18 Simethicone [Mylicon -] 80 mg PO Q4H PRN tab.chew 09/23/18 Tamsulosin HCl [Flomax -] 0.4 mg PO DAILY@0830 #15 cap.er.24h 09/24/18 Ibuprofen 800 mg PO QID #20 tablet 01/06/19 Oxycodone HCl/Acetaminophen [Percocet 5-325 mg Tablet] 1 tab PO Q6H PRN #10 tablet MDD 4 01/06/19 Tamsulosin HCl [Flomax] 0.4 mg PO DAILY #10 cap.er.24h 01/06/19 Anemia: No Asthma: No Cancer: No Cardiac Disorders: No CVA: No COPD: No CHF: No Dementia: No GI Disorders: No Disorders: No HTN: No Hypercholesterolemia: No Liver Disease: No Seizures: No Thyroid Disease: No Other medical history: KIDNEY STONES - Surgical History Abdominal Surgery: No Appendectomy: Yes Cardiac Surgery: No Cholecystectomy: No Lung Surgery: No Neurologic Surgery: No Orthopedic Surgery: No - Immunization History Immunization Up to Date: Yes - Psycho Social/Smoking Cessation Hx Smoking Status: Yes Smoking History: Never smoked Have you smoked in the past 12 months: No Number of Cigarettes Smoked Daily: 5 'Breaking Loose' booklet given: 06/30/11 Hx Alcohol Use: No Drug/Substance Use Hx: No Substance Use Type: Marijuana Review of Systems - Review of Systems Able to Perform ROS?: Yes Comments:: 01/06/19 19:26 CONSTITUTIONAL: Absent: fever, chills, diaphoresis, generalized weakness, malaise, loss of appetite HEENT: Absent: rhinorrhea, nasal congestion, throat pain, throat swelling, difficulty swallowing, mouth swelling, ear pain, eye pain, visual Changes CARDIOVASCULAR: Absent: chest pain, loss of consciousness, palpitations, irregular heart rate, peripheral edema RESPIRATORY: Absent: cough, shortness of breath, dyspnea with exertion, orthopnea, wheezing, stridor, hemoptysis GASTROINTESTINAL: Absent: abdominal pain, abdominal distension, nausea, vomiting, diarrhea, constipation, melena, hematochezia GENITOURINARY: Present: Left-sided flank pain absent: dysuria, frequency, urgency, hesitancy, hematuria, genital pain MUSCULOSKELETAL: Absent: myalgia, arthralgia, joint swelling SKIN: Absent: rash, itching, pallor HEMATOLOGIC/IMMUNOLOGIC: Absent: easy bleeding, easy bruising, lymphadenopathy, frequent infections ENDOCRINE: Absent: unexplained weight gain, unexplained weight loss, heat intolerance, cold intolerance NEUROLOGIC: Absent: headache, focal weakness or paresthesias, dizziness, unsteady gait, seizure, mental status changes, bladder or bowel incontinence PSYCHIATRIC: Absent: anxiety, depression, suicidal or homicidal ideation, hallucinations. Is the patient limited Khmer proficient: No *Physical Exam - Vital Signs Last Vital Signs Temp Pulse Resp BP Pulse Ox 98 F 82 18 165/98 99 01/06/19 17:27 01/06/19 17:27 01/06/19 17:27 01/06/19 17:27 01/06/19 17:27 - Physical Exam 01/06/19 19:26 GENERAL: Well developed, well nourished. Awake and alert. Patient in moderate distress, unable to sit still due to pain. HEENT: Normocephalic, atraumatic. PERRLA, EOMI. No conjunctival pallor. Sclera are non- icteric. Moist mucous membranes. Oropharynx is clear. NECK: Supple. Full ROM. No JVD. Carotid pulses 2+ and symmetric, without bruits. No thyromegaly. No lymphadenopathy. CARDIOVASCULAR: Regular rate and rhythm. No murmurs, rubs, or gallops. Distal pulses are 2+ and symmetric. PULMONARY: No evidence of respiratory distress. Lungs clear to auscultation bilaterally. No wheezing, rales or rhonchi. ABDOMINAL: Soft. Non-tender. Non-distended. No rebound or guarding. No organomegaly. Normoactive bowel sounds. MUSCULOSKELETAL Normal range of motion at all joints. No bony deformities or tenderness. (+) L CVA tenderness. EXTREMITIES: No cyanosis. No clubbing. No edema. No calf tenderness. SKIN: Warm and dry. Normal capillary refill. No rashes. No jaundice. NEUROLOGICAL: Alert, awake, appropriate. Cranial nerves 2-12 intact. No deficits to light touch and temperature in face, upper extremities and lower extremities. No motor deficits in the in face, upper extremities and lower extremities. Normoreflexic in the upper and lower extremities. Normal speech. Toes are down- going bilaterally. Gait is normal without ataxia. PSYCHIATRIC: Cooperative. Good eye contact. Appropriate mood and affect. ED Treatment Course - LABORATORY CBC & Chemistry Diagram: 01/06/19 18:10 01/06/19 17:52 - RADIOLOGY Radiology Studies Ordered: Category Date Time Status SPIRAL- RENAL-STONE CT [CT] Stat CT Scan 01/06/19 17:53 Ordered Medical Decision Making - Medical Decision Making 01/06/19 19:27 Patient is a 43-year-old male past medical history of renal stones, kidney stones presents to the ER today with left-sided flank pain starting this morning. He states that the pain is increased in intensity over the day and he now reports pain in the left flank and suprapubic area. He states that he is unable to sit still due to the pain. He also admits to associated nausea. He states this is similar to when he had a stone this past summer. Denies fevers, chills, urinary retention, dysuria, hematuria, vomiting and diarrhea. Urology: Dr. Reich A/P: Left-sided flank pain On exam patient very uncomfortable writhing around the vertical area. Patient with left-sided CVA tenderness. Patient moved to room 9B for further evaluation Dilaudid, Zofran given for pain Basic labs obtained We will send patient for renal study Signout given to DARRIAN Barton pending labs and spiral CT. Discharge - Discharge Information Problems reviewed: Yes Clinical Impression/Diagnosis: Renal colic on left side, Left nephrolithiasis Disposition: HOME - Additional Discharge Information Prescriptions: Ibuprofen 800 mg PO QID #20 tablet Oxycodone HCl/Acetaminophen [Percocet 5-325 mg Tablet] 1 tab PO Q6H PRN #10 tablet MDD 4 PRN Reason: Moderate Pain Tamsulosin HCl [Flomax] 0.4 mg PO DAILY #10 cap.er.24h - Follow up/Referral Referrals: Juanjose Tovar MD [Staff Physician] - Call tomorrow - Patient Discharge Instructions Patient Printed Discharge Instructions: Kidney Stones -- Adult Additional Instructions: Take Flomax once a day as prescribed. Your first dose was given today take the next dose tomorrow. Take ibuprofen every 6 hours as needed for pain. Take Percocet for more moderate pain as prescribed. Drink plenty of fluids Follow-up with the urologist as soon as possible. Return to the emergency room if you are experiencing worsening pain after pain medication, nausea vomiting, fever or any worsening symptoms. - Post Discharge Activity Work/Back to School Note: Back to Work
[2019-01-06] MEDS ORDERED: HYDROmorphone HCl 2 MG/ML VIAL ONE (17:58)
[2019-01-06 18:27] LABS: BASO % 1.2 % (0-2.0); HEMATOCRIT 40.2 % (35.4-49); LYMPH % 23.9 % (8-40); MCH 31.3 pg (25.7-33.7); MCHC 34.7 g/dl (32.0-35.9); MEAN CELL VOLUME 90.1 fl (80-96); MEAN PLT VOLUME 8.1 fl (7.5-11.1); MONO % 7.8 % (3.8-10.2); NEUT % 66.1 % (42.8-82.8); PLATELET COUNT 343 K/MM3 (134-434); RBC 4.47 M/mm3 (4.00-5.60); WHITE BLOOD COUNT 6.8 K/mm3 (4.0-10.0)
[2019-01-06 18:45] LABS: INR 1.1 (0.83-1.09)
[2019-01-06] MEDS ORDERED: ONDANSETRON *ODT* 4 MG TABLET SL ONE (18:50)
[2019-01-06 19:05] LABS: BILIRUBIN,TOTAL 0.6 mg/dL (0.2-1); BLOOD UREA NITROGEN 15.1 mg/dL (7-18); CALCIUM 8.4 mg/dL (8.5-10.1); CREATININE 1.2 mg/dL (0.55-1.3); POTASSIUM 4.4 mmol/L (3.5-5.1); TOT PROT 7.8 g/dl (6.4-8.2)
[2019-01-06] MEDS ORDERED: ACETAMINOPHEN 1000 MG/100 ML VIAL (NON FORMULARY) IVPB ONE (19:26)
[2019-01-06] MEDS ORDERED: ACETAMINOPHEN INJECTION 100 ML IVPB ONE (19:35)
--- NOTE | 2019-01-06 19:56 | PDOC ---
*Physical Exam - Vital Signs Last Vital Signs Temp Pulse Resp BP Pulse Ox 98 F 82 18 165/98 99 01/06/19 17:27 01/06/19 17:27 01/06/19 17:27 01/06/19 17:27 01/06/19 17:27 ED Treatment Course - LABORATORY CBC & Chemistry Diagram: 01/06/19 18:10 01/06/19 17:52 - ADDITIONAL ORDERS Additional order review: Laboratory Results 01/06/19 01/06/19 18:10 17:52 PT with INR 13.00 INR 1.10 H Sodium 136 Potassium 4.4 Chloride 102 Carbon Dioxide 25 Anion Gap 8 BUN 15.1 Creatinine 1.2 Est GFR (CKD-EPI)AfAm 85.32 Est GFR (CKD-EPI)NonAf 73.62 Random Glucose 123 H Calcium 8.4 L Total Bilirubin 0.6 AST 42 H ALT 25 Alkaline Phosphatase 85 Total Protein 7.8 Albumin 4.0 01/06/19 18:10 RBC 4.47 MCV 90.1 MCHC 34.7 RDW 13.0 MPV 8.1 Neutrophils % 66.1 Lymphocytes % 23.9 D Monocytes % 7.8 Eosinophils % 1.0 D Basophils % 1.2 D - Medications Given in the ED: ED Medications Discontinued Medications Generic Name Dose Route Start Last Admin Trade Name Filibertoq PRN Reason Stop Dose Admin Acetaminophen 1,000 mg 01/06/19 19:26 01/06/19 19:37 Ofirmev Injection - IVPB 01/06/19 19:27 1,000 mg ONCE ONE Administration Hydromorphone HCl 1 mg 01/06/19 17:52 01/06/19 18:53 Dilaudid Injection - IVPUSH 01/06/19 17:53 Not Given ONCE ONE Hydromorphone HCl 1 mg 01/06/19 17:56 01/06/19 18:05 Dilaudid Injection - IM 01/06/19 17:57 1 mg ONCE ONE Administration Sodium Chloride 1,000 mls @ 1,000 mls/hr 01/06/19 17:52 01/06/19 18:00 Normal Saline - IV 01/06/19 18:51 1,000 mls/hr ASDIR STA Administration Ondansetron HCl 4 mg 01/06/19 17:52 01/06/19 18:53 Zofran Injection IVPUSH 01/06/19 17:53 Not Given ONCE ONE Ondansetron HCl 4 mg 01/06/19 18:50 01/06/19 18:53 Zofran Odt - SL 01/06/19 18:51 4 mg ONCE ONE Administration Medical Decision Making - Medical Decision Making 01/06/19 21:23 pain is improved. strict return precautions reviewed with patient. 01/06/19 21:[address] compared to previous visit 4mm stone at [facility]. patient verbalized understanding, Discharge - Discharge Information Problems reviewed: Yes Clinical Impression/Diagnosis: Renal colic on left side, Left nephrolithiasis Disposition: HOME - Additional Discharge Information Prescriptions: Ibuprofen 800 mg PO QID #20 tablet Oxycodone HCl/Acetaminophen [Percocet 5-325 mg Tablet] 1 tab PO Q6H PRN #10 tablet MDD 4 PRN Reason: Moderate Pain Tamsulosin HCl [Flomax] 0.4 mg PO DAILY #10 cap.er.24h - Follow up/Referral Referrals: Juanjose Tovar MD [Staff Physician] - Call tomorrow - Patient Discharge Instructions Patient Printed Discharge Instructions: Kidney Stones -- Adult Additional Instructions: Take Flomax once a day as prescribed. Your first dose was given today take the next dose tomorrow. Take ibuprofen every 6 hours as needed for pain. Take Percocet for more moderate pain as prescribed. Drink plenty of fluids Follow-up with the urologist as soon as possible. Return to the emergency room if you are experiencing worsening pain after pain medication, nausea vomiting, fever or any worsening symptoms. - Post Discharge Activity Work/Back to School Note: Back to Work
[2019-01-06] MEDS ORDERED: KETOROLAC TROMETHAMINE 30 MG/1 ML VIAL IVPUSH ONE (19:57)
[2019-01-06] MEDS ORDERED: TAMSULOSIN HCL 0.4 MG CAP PO ONE (19:57)
[2019-01-06] MEDS ORDERED: TAMSULOSIN HCL 0.4 MG CAP ONE (20:15)
[2019-01-06] MEDS ORDERED: KETOROLAC TROMETHAMINE 30 MG/1 ML VIAL ONE (20:15)
[2019-01-06 20:30] LABS: PH,URINE 6.5 (5.0-8.0); URINE APPEARANCE CLEAR; URINE BILIRUBIN NEGATIVE (NEGATIVE); URINE COLOR YELLOW; URINE GLUCOSE (UA) NEGATIVE (NEGATIVE); URINE KETONE NEGATIVE (NEGATIVE); URINE LEUK ESTERASE NEGATIVE (NEGATIVE); URINE NITRITE NEGATIVE (NEGATIVE); URINE PROTEIN NEGATIVE (NEGATIVE); URINE UROBILINOGEN 0.2 mg/dL (0.2-1.0)
[2019-01-06 20:37] VITALS: BP 140/95; PULSE 70
== END 2019-01-06 21:46 | disposition home or self-care (01) ==
LOC: JER 17:26
PROC: 3E023NZ Introduction of Analgesics, Hypnotics, Sedatives into Muscle, Percutaneous Approach (ICD-10-PCS; principal; 2019-01-06)
PROC: 3E0337Z Introduction of Electrolytic and Water Balance Substance into Peripheral Vein, Percutaneous Approach (ICD-10-PCS; 2019-01-06)
PROC: 3E0333Z Introduction of Anti-inflammatory into Peripheral Vein, Percutaneous Approach (ICD-10-PCS; 2019-01-06)
PROC: 3E033GC Introduction of Other Therapeutic Substance into Peripheral Vein, Percutaneous Approach (ICD-10-PCS; 2019-01-06)
DX: N13.2 Hydronephrosis with renal and ureteral calculous obstruction (principal); Z87.442 Personal history of urinary calculi
CPT/HCPCS: 36415; 74176-TC; 80053; 81003; 85025; 85610; 87086; 99282-25; J0131; J7030; Q0162

== ENCOUNTER 2020-05-07 10:01 | Inpatient (IN) | payer OTHER ==
[2020-05-07] MEDS ORDERED: KETOROLAC TROMETHAMINE 30 MG/1 ML VIAL IVPUSH ONE (10:23)
[2020-05-07] MEDS ORDERED: morphine CARPU-JECT 2 MG/1 ML DISP.SYRIN IVPUSH ONE ×2 (10:24→17:16)
[2020-05-07] MEDS ORDERED: ONDANSETRON 4 MG/2 ML VIAL IVPUSH ONE ×2 (10:24→20:44)
[2020-05-07] MEDS ORDERED: ONDANSETRON 4 MG/2 ML VIAL ONE (10:29)
[2020-05-07] MEDS ORDERED: MORPHINE SULFATE 2 MG/ML VIAL ONE ×2 (10:29→17:28)
[2020-05-07] MEDS ORDERED: KETOROLAC TROMETHAMINE 30 MG/1 ML VIAL ONE (10:29)
[2020-05-07 11:12] LABS: BASO % 1.1 % (0-2.0); EOS % 1.5 % (0-4.5); HEMOGLOBIN 14.7 GM/dL (11.7-16.9); MCH 31.5 pg (25.7-33.7); MEAN CELL VOLUME 90.1 fl (80-96); MEAN PLT VOLUME 8.3 fl (7.5-11.1); MONO % 6.7 % (3.8-10.2); NEUT % 51.7 % (42.8-82.8); PLATELET COUNT 312 K/MM3 (134-434); RBC 4.66 M/mm3 (4.00-5.60); RDW 13.2 % (11.9-15.9); WHITE BLOOD COUNT 5.3 K/mm3 (4.0-10.0)
[2020-05-07 11:20] LABS: INR 0.98 (0.83-1.09); PROTHROMBIN TIME (PATIENT) 12.1 SEC (9.7-13.0)
[2020-05-07 11:37] LABS: POTASSIUM 3.9 mmol/L (3.5-5.1)
[2020-05-07 11:42] LABS: CALCIUM 9.6 mg/dL (8.5-10.1)
[2020-05-07 11:43] LABS: ALBUMIN 4.4 g/dl (3.4-5.0); BLOOD UREA NITROGEN 18.8 mg/dL (7-18)
[2020-05-07] MEDS ORDERED: METOCLOPRAMIDE HCL INJECTION 10 MG/2 ML VIAL IVPUSH ONE (11:45)
[2020-05-07 11:46] LABS: CREATININE 1.3 mg/dL (0.55-1.3)
[2020-05-07 11:48] LABS: BILIRUBIN,TOTAL 0.5 mg/dL (0.2-1); TOT PROT 8.4 g/dl (6.4-8.2)
[2020-05-07] MEDS ORDERED: SODIUM CHLORIDE 0.9% 500 ML INFUS.BAG IV ONE ×2 (11:59→15:42)
[2020-05-07 12:05] LABS: PH,URINE 5.5 (5.0-8.0); URINE APPEARANCE CLEAR; URINE BILIRUBIN NEGATIVE (NEGATIVE); URINE COLOR YELLOW; URINE GLUCOSE (UA) NEGATIVE (NEGATIVE); URINE KETONE TRACE (NEGATIVE); URINE LEUK ESTERASE NEGATIVE (NEGATIVE); URINE NITRITE NEGATIVE (NEGATIVE); URINE PROTEIN TRACE (NEGATIVE); URINE UROBILINOGEN 0.2 mg/dL (0.2-1.0)
[2020-05-07] MEDS ORDERED: METOCLOPRAMIDE HCL INJECTION 10 MG/2 ML VIAL ONE (12:15)
[2020-05-07] MEDS ORDERED: ACETAMINOPHEN INJECTION 100 ML IVPB ONE (13:45)
[2020-05-07] MEDS ORDERED: ACETAMINOPHEN 1000 MG/100 ML VIAL (NON FORMULARY) IVPB ONE (13:46)
[2020-05-07] MEDS ORDERED: TAMSULOSIN HCL 0.4 MG CAP PO ONE (15:42)
[2020-05-07] MEDS ORDERED: TAMSULOSIN HCL 0.4 MG CAP ONE (16:49)
[2020-05-07] MEDS ORDERED: ACETAMINOPHEN 325 MG TABLET (FP) ONE (19:49)
[2020-05-07] MEDS ORDERED: KETOROLAC TROMETHAMINE 15 MG/ML VIAL ONE (19:50)
[2020-05-07] MEDS: KETOROLAC TROMETHAMINE 15 MG/ML VIAL IVPUSH PRN (20:13)
[2020-05-07] MEDS: ACETAMINOPHEN 325 MG TABLET (FP) PO PRN (20:14)
[2020-05-07] MEDS: SODIUM CHLORIDE 1,000 ML IV SCH (21:01)
[2020-05-07 23:01] VITALS: BMI 31.9
[2020-05-08] MEDS: SODIUM CHLORIDE 1,000 ML IV SCH ×3 (05:09→23:17)
[2020-05-08 09:32] LABS: BASO % 0.3 % (0-2.0); EOS % 0.2 % (0-4.5); HEMATOCRIT 37.7 % (35.4-49); HEMOGLOBIN 13.3 GM/dL (11.7-16.9); LYMPH % 19.1 % (8-40); MCH 31.5 pg (25.7-33.7); MCHC 35.3 g/dl (32.0-35.9); MEAN CELL VOLUME 89.3 fl (80-96); MEAN PLT VOLUME 8.3 fl (7.5-11.1); MONO % 10.5 % (3.8-10.2); NEUT % 69.9 % (42.8-82.8); PLATELET COUNT 262 K/MM3 (134-434); RBC 4.22 M/mm3 (4.00-5.60); RDW 12.9 % (11.9-15.9); WHITE BLOOD COUNT 8.5 K/mm3 (4.0-10.0)
[2020-05-08 09:44] LABS: POTASSIUM 3.9 mmol/L (3.5-5.1)
[2020-05-08 10:05] LABS: ALBUMIN 3.6 g/dl (3.4-5.0)
[2020-05-08 10:06] LABS: BLOOD UREA NITROGEN 19.3 mg/dL (7-18); CALCIUM 8.4 mg/dL (8.5-10.1)
[2020-05-08 10:09] LABS: CREATININE 1.4 mg/dL (0.55-1.3)
[2020-05-08 10:10] LABS: PHOSPHOROUS 3.1 mg/dL (2.5-4.9)
[2020-05-08 10:11] LABS: TOT PROT 6.9 g/dl (6.4-8.2)
[2020-05-08] MEDS: ENOXAPARIN NA (PORCINE) 40 MG/0.4 ML DISP.SYRIN SQ SCH (10:15)
[2020-05-08] MEDS: TAMSULOSIN HCL 0.4 MG CAP PO SCH (10:15)
[2020-05-08] MEDS: KETOROLAC TROMETHAMINE 15 MG/ML VIAL IVPUSH PRN ×2 (14:37→21:05)
[2020-05-08] MEDS: ACETAMINOPHEN 325 MG TABLET (FP) PO PRN ×2 (17:49→23:17)
[2020-05-09] MEDS: KETOROLAC TROMETHAMINE 15 MG/ML VIAL IVPUSH PRN ×4 (03:00→21:55)
[2020-05-09] MEDS: ACETAMINOPHEN 325 MG TABLET (FP) PO PRN ×2 (06:21→15:00)
[2020-05-09] MEDS: SODIUM CHLORIDE 1,000 ML IV SCH ×3 (06:26→22:20)
[2020-05-09] MEDS: ENOXAPARIN NA (PORCINE) 40 MG/0.4 ML DISP.SYRIN SQ SCH ×2 (09:27→09:31)
[2020-05-09] MEDS: TAMSULOSIN HCL 0.4 MG CAP PO SCH (09:27)
[2020-05-09 10:10] LABS: BASO % 1.4 % (0-2.0); EOS % 0.7 % (0-4.5); HEMATOCRIT 35.8 % (35.4-49); HEMOGLOBIN 12.5 GM/dL (11.7-16.9); LYMPH % 35.7 % (8-40); MCH 31.4 pg (25.7-33.7); MCHC 34.9 g/dl (32.0-35.9); MEAN CELL VOLUME 90.1 fl (80-96); MEAN PLT VOLUME 8.2 fl (7.5-11.1); MONO % 12.1 % (3.8-10.2); NEUT % 50.1 % (42.8-82.8); PLATELET COUNT 240 K/MM3 (134-434); RBC 3.98 M/mm3 (4.00-5.60); RDW 12.8 % (11.9-15.9); WHITE BLOOD COUNT 5.6 K/mm3 (4.0-10.0)
[2020-05-09 10:50] LABS: CALCIUM 8.2 mg/dL (8.5-10.1); CREATININE 1.2 mg/dL (0.55-1.3)
[2020-05-09] MEDS ORDERED: MORPHINE SULFATE 2 MG/ML VIAL IVPUSH PRN (11:38)
[2020-05-10] MEDS: SODIUM CHLORIDE 1,000 ML IV SCH (03:54)
[2020-05-10 09:10] LABS: EOS % 1.5 % (0-4.5); HEMATOCRIT 37.5 % (35.4-49); HEMOGLOBIN 13.3 GM/dL (11.7-16.9); MCH 31.7 pg (25.7-33.7); MCHC 35.4 g/dl (32.0-35.9); MEAN CELL VOLUME 89.3 fl (80-96); MEAN PLT VOLUME 8.4 fl (7.5-11.1); MONO % 13.2 % (3.8-10.2); NEUT % 40.3 % (42.8-82.8); PLATELET COUNT 257 K/MM3 (134-434); RDW 12.7 % (11.9-15.9); WHITE BLOOD COUNT 4.9 K/mm3 (4.0-10.0)
[2020-05-10 09:24] LABS: POTASSIUM 4.4 mmol/L (3.5-5.1)
[2020-05-10 09:26] LABS: CALCIUM 8.7 mg/dL (8.5-10.1)
[2020-05-10 09:27] LABS: BLOOD UREA NITROGEN 15.6 mg/dL (7-18)
[2020-05-10 09:30] LABS: CREATININE 1.2 mg/dL (0.55-1.3)
[2020-05-10] MEDS: ENOXAPARIN NA (PORCINE) 40 MG/0.4 ML DISP.SYRIN SQ SCH (09:32)
[2020-05-10] MEDS: TAMSULOSIN HCL 0.4 MG CAP PO SCH (09:32)
[2020-05-10 13:50] VITALS: BP 141/45; PULSE 78; TEMP 98.2
== END 2020-05-10 12:59 | disposition home or self-care (01) | DRG 694 ==
LOC: JER 10:01 → JERBED 15:43 → J5S 20:40
PROVIDERS: ADMIT Internal Medicine
DX: N13.2 Hydronephrosis with renal and ureteral calculous obstruction (principal); N17.9 Acute kidney failure, unspecified
CPT/HCPCS: 36415; 74176-TC; 80048; 80053; 81003; 82360; 83690; 83735; 84100; 85025; 85610; 87086; 93005; 93010; 99285-25; C9803; J0131; U0003; U0005